=== PATIENT | male | born 1955 | race African-American/Black ===

== ENCOUNTER 2016-05-28 07:13 | Day surgery (SDC) | payer MEDICARE, MEDICAID ==
[~2016-05-28] VITALS: Ht 172.7 cm; Wt 61.4 kg
[2016-05-28] VITALS (9 sets, daily range): BP systolic 130–178; BP diastolic 75–105; PULSE 82–109; RESP 16–20; TEMP 97.8–97.9; O2SAT 95–99
[~2016-05-28 07:13] MED LIST: ALBU8I INH; LEVA500T PO; PERC5TAB12 PO; PROC1TAB8 PO; TUSSSUS PO
[2016-05-28] MEDS ORDERED: SODIUM CHLOR 0.9% 1000 ML IV SCH (07:30)
[2016-05-28] MEDS ORDERED: MIDAZOLAM HCL 5 MG/5 ML VIAL ONE (07:41)
[2016-05-28] MEDS ORDERED: fentaNYL CITRATE 250 MCG/5 ML AMP ONE (07:41)
[2016-05-28] MEDS ORDERED: LIDOCAINE 1%/EPINEPHrine 1:100,000 SOLN 20 ML VIAL ONE (07:41)
[2016-05-28] MEDS ORDERED: OXYC1CAP PO (07:52)
[2016-05-28] MEDS ORDERED: ENAL5TAB PO (07:52)
[2016-05-28] MEDS ORDERED: Infusaport/Implanted VAD PRN NS Lock Flush IVF (08:00)
[2016-05-28 08:11] LABS: APTT (PATIENT) 34.3 SEC (24.3-30.1)
--- NOTE | 2016-05-28 09:19 | RADRPT ---
EXAM DATE/TIME: 05/28/2016 08:36 [facility] COMPARISON: No previous studies available for comparison. INDICATIONS : Right lung mass SEDATION TIME: 30 minutes BIOPSY SITE: Right lung MEDICATION(S): 1.) 2.5 mg midazolam (Versed) IV 2.) 125 mcg fentanyl (Sublimaze) IV DEVICE(S): 1.) 18 gauge Islas blunt needle 2.) 20 gauge Temno core biopsy needle MEDICAL HISTORY : Carcinoma, lung. SURGICAL HISTORY : None. ENCOUNTER: Initial ACUITY: 1 day PAIN SCORE: 0/10 LOCATION: Right chest A total of two core specimen(s) were obtained and sent to the laboratory for pathologic evaluation. PROCEDURE: 1. CT guided lung biopsy. 2. Conscious sedation with continuous EKG and oximetry monitoring. 3. EKG and oximetry remained stable throughout the procedure. Prior to the procedure informed consent was obtained. Any appropriate prior imaging studies were rev iewed. The site was prepped in a sterile fashion. Full sterile technique was used, including cap, mask, zee rile gloves and gown and a large sterile sheet. Hand hygiene and 2% chlorhexidine and/or betadine/al cohol prep was utilized per protocol for cutaneous antisepsis. The skin and subcutaneous tissues wer e infiltrated with local anesthetic solution. With CT guidance the previously identified target was localized. Biopsy was performed using the presc ribed needle as above. Adequate hemostasis was obtained with compression at the puncture site. Follow-up CT scan reveals no pneumothorax. Conscious sedation was performed with the prescribed dosages and duration as above. The patient al ated the procedure well and there were no complications. EKG and oximetry remained stable throughout the procedure. The patient was sent to Radiology Outpatient Unit in stable condition. CONCLUSION: Uncomplicated CT guided biopsy of a right lung mass. Doe Jack MD on May 28, 2016 at 9:17 Board Certified Radiologist. This report was verified electronically.
[2016-05-28] MEDS ORDERED: oxyCODONE/ACETAMINOPHEN 5 MG/325 MG TAB PO PRN (09:30)
--- NOTE | 2016-05-28 13:33 | RADRPT ---
EXAM DATE/TIME: 05/28/2016 12:35 [facility] COMPARISON: No previous studies available for comparison. INDICATIONS : Post lung Bx MEDICAL HISTORY : Carcinoma, lung. Infuse a port. SURGICAL HISTORY : Infuse a port. ENCOUNTER: Initial ACUITY: 1 day PAIN SCORE: 0/10 LOCATION: Bilateral chest FINDINGS: Status post right lung biopsy. No evidence of pneumothorax. There continues to be consolidation in th e right lower lung. The left lung is clear. No definite pleural effusions. CONCLUSION: No evidence of pneumothorax. Doe Jack MD on May 28, 2016 at 13:30 Board Certified Radiologist. This report was verified electronically.
== END 2016-05-28 13:50 | disposition home or self-care (01) ==
LOC: HROP 07:13 → HRIP 07:15 → HROP 13:50
PROVIDERS: ATTEND Internal Medicine Hematology & Oncology
DX: C34.91 Malignant neoplasm of unspecified part of right bronchus or lung (principal); Z85.118 Personal history of other malignant neoplasm of bronchus and lung
CPT/HCPCS: 32405; 38221; 71010; 77012; 85610; 85730; 88305; 99152; G0364; J1642; J2250; J3010

== ENCOUNTER 2017-11-02 15:07 | Inpatient (IN) | payer MEDICARE, MEDICAID ==
[~2017-11-02] VITALS: Ht 170.2 cm; Wt 63.0 kg
[~2017-11-02 15:07] MED LIST changes: -ALBU8I INH; +ENAL5TAB PO; -LEVA500T PO; +OXYC1CAP PO; -PERC5TAB12 PO; -PROC1TAB8 PO; -TUSSSUS PO
[2017-11-02 15:16] VITALS: BP 148/83; PULSE 89; RESP 15; TEMP 97.9; O2SAT 98
[2017-11-02 16:39] VITALS: BP 161/82; PULSE 83; RESP 18; O2SAT 97
--- NOTE | 2017-11-02 16:43 | PD ---
HPI Chief Complaint: Abnormal Results Time Seen by Provider: 16:30 Travel History International Travel<30 days: No Contact w/Intl Traveler<30days: No Traveled to known affect area: No History of Present Illness HPI The patient is a 62-year-old -Al[place] male who presents to the emergency department for abnormal lab results. The patient has a history of stage IV lung cancer and is currently followed by his oncologist, Dr. Girard. The family states the patient has been feeling weak over the last 1-1/2 weeks, has had multiple falls at home. The patient states he does have some generalized weakness, has fallen several times secondary to the weakness. He denies any injuries from the falls, however, did have outpatient laboratory evaluation earlier today which revealed hyponatremia with a sodium of 123. The patient does have a history of lung carcinoma, stage IV, but is no longer getting palliative chemotherapy or radiation therapy. The patient states he finished his radiation therapy and chemotherapy 2 months ago. He is followed by his oncologist, Dr. Girard, but does not currently have a primary physician. He denies taking any diuretics. The patient does drink 4 beers a day and "lots of water ", otherwise denies any other symptoms including nausea, vomiting, or abdominal pain. PFSH Past Medical History Cancer: Yes (LUNG CA WITH CHEMO AND RADIATION ) Cardiovascular Problems: No Chemotherapy: Yes (2 MO'S AGO) Diabetes: No Diminished Hearing: No Endocrine: No Genitourinary: No Immune Disorder: No Musculoskeletal: Yes (ADMITTED WITH RIGHT RIB PAIN 05/24/13) Neurologic: No Psychiatric: No Reproductive: No Respiratory: Yes Immunizations Current: No Thyroid Disease: No Past Surgical History AICD: No Arteriovenous Shunt: No Insulin Pump: No Joint Replacement: No Oral Surgery: Yes (TOOTH EXTRACTIONS 1989) Pacemaker: No Thoracic Surgery: Yes (port placement) Social History Alcohol Use: Yes (OCCASSIONAL) Tobacco Use: Yes (1 PPD) Substance Use: No Allergies-Medications (Allergen,Severity, Reaction): Coded Allergies: No Known Allergies (Unverified Adverse Reaction, Unknown, 11/02/17) Reported Meds & Prescriptions Reported Meds & Active Scripts Active Reported Oxycodone (Oxycodone HCl) 5 Mg Cap 5 Mg PO Q4H PRN Enalapril (Enalapril Maleate) 5 Mg Tab 5 Mg PO DAILY Review of Systems Except as stated in HPI: all other systems reviewed are Neg General / Constitutional: No: Fever Cardiovascular: No: Chest Pain or Discomfort Respiratory: Positive: Other (History of stage IV lung carcinoma), No: Shortness of Breath Gastrointestinal: No: Nausea, Vomiting Genitourinary: No: Decreased Urinary Output Musculoskeletal: Positive: Weakness Neurologic: Positive: Weakness, No: Headache, Change in Mentation Physical Exam Narrative GENERAL: Awake, alert, pleasant 62-year-old male who appears his stated age and is in no acute respiratory distress. Thin build. SKIN: Focused skin assessment warm/dry. HEAD: Atraumatic. Normocephalic. EYES: Pupils equal and round. No scleral icterus. No injection or drainage. ENT: No nasal bleeding or discharge. Mucous membranes pink and moist. NECK: Trachea midline. No JVD. CARDIOVASCULAR: Regular rate and rhythm. No murmur appreciated. RESPIRATORY: No accessory muscle use. Clear to auscultation. Breath sounds equal bilaterally. GASTROINTESTINAL: Abdomen soft, non-tender, nondistended. No rebound tenderness , guarding, rigidity. MUSCULOSKELETAL: No obvious deformities. No clubbing. No cyanosis. No edema. NEUROLOGICAL: Awake and alert. No obvious cranial nerve deficits. Motor grossly within normal limits. Normal speech. PSYCHIATRIC: Appropriate mood and affect; insight and judgment normal. Data Data Last Documented VS Vital Signs Date Time Temp Pulse Resp B/P (MAP) Pulse Ox O2 Delivery O2 Flow Rate FiO2 11/02/17 16:39 83 18 161/82 (108) 97 Room Air 11/02/17 15:16 97.9 Orders Orders Complete Blood Count With Diff (11/02/17 16:38) Comprehensive Metabolic Panel (11/02/17 16:38) Sodium Chlorid 0.9% 500 Ml Inj (Ns 500 M (11/02/17 16:45) Admit Order (Ed Use Only) (11/02/17 17:50) Labs Laboratory Tests Test 11/02/17 16:50 White Blood Count 4.0 TH/MM3 Red Blood Count 4.05 MIL/MM3 Hemoglobin 15.3 GM/DL Hematocrit 44.5 % Mean Corpuscular Volume 110.0 FL Mean Corpuscular Hemoglobin 37.8 PG Mean Corpuscular Hemoglobin Concent 34.3 % Red Cell Distribution Width 14.7 % Platelet Count 145 TH/MM3 Mean Platelet Volume 9.5 FL Neutrophils (%) (Auto) 73.8 % Lymphocytes (%) (Auto) 14.9 % Monocytes (%) (Auto) 9.3 % Eosinophils (%) (Auto) 1.3 % Basophils (%) (Auto) 0.7 % Neutrophils # (Auto) 3.0 TH/MM3 Lymphocytes # (Auto) 0.6 TH/MM3 Monocytes # (Auto) 0.4 TH/MM3 Eosinophils # (Auto) 0.1 TH/MM3 Basophils # (Auto) 0.0 TH/MM3 CBC Comment DIFF FINAL Differential Comment Blood Urea Nitrogen 7 MG/DL Creatinine 1.14 MG/DL Random Glucose 89 MG/DL Total Protein 7.7 GM/DL Albumin 4.1 GM/DL Calcium Level 8.4 MG/DL Alkaline Phosphatase 107 U/L Aspartate Amino Transf (AST/SGOT) 117 U/L Alanine Aminotransferase (ALT/SGPT) 33 U/L Total Bilirubin 0.7 MG/DL Sodium Level 125 MEQ/L Potassium Level 3.7 MEQ/L Chloride Level 91 MEQ/L Carbon Dioxide Level 25.9 MEQ/L Anion Gap 8 MEQ/L Estimat Glomerular Filtration Rate 79 ML/MIN [facility] Medical Decision Making Medical Screen Exam Complete: Yes Emergency Medical Condition: Yes Medical Record Reviewed: Yes Interpretation(s) Laboratory Tests Test 11/02/17 16:50 White Blood Count 4.0 TH/MM3 Red Blood Count 4.05 MIL/MM3 Hemoglobin 15.3 GM/DL Hematocrit 44.5 % Mean Corpuscular Volume 110.0 FL Mean Corpuscular Hemoglobin 37.8 PG Mean Corpuscular Hemoglobin Concent 34.3 % Red Cell Distribution Width 14.7 % Platelet Count 145 TH/MM3 Mean Platelet Volume 9.5 FL Neutrophils (%) (Auto) 73.8 % Lymphocytes (%) (Auto) 14.9 % Monocytes (%) (Auto) 9.3 % Eosinophils (%) (Auto) 1.3 % Basophils (%) (Auto) 0.7 % Neutrophils # (Auto) 3.0 TH/MM3 Lymphocytes # (Auto) 0.6 TH/MM3 Monocytes # (Auto) 0.4 TH/MM3 Eosinophils # (Auto) 0.1 TH/MM3 Basophils # (Auto) 0.0 TH/MM3 CBC Comment DIFF FINAL Differential Comment Blood Urea Nitrogen 7 MG/DL Creatinine 1.14 MG/DL Random Glucose 89 MG/DL Total Protein 7.7 GM/DL Albumin 4.1 GM/DL Calcium Level 8.4 MG/DL Alkaline Phosphatase 107 U/L Aspartate Amino Transf (AST/SGOT) 117 U/L Alanine Aminotransferase (ALT/SGPT) 33 U/L Total Bilirubin 0.7 MG/DL Sodium Level 125 MEQ/L Potassium Level 3.7 MEQ/L Chloride Level 91 MEQ/L Carbon Dioxide Level 25.9 MEQ/L Anion Gap 8 MEQ/L Estimat Glomerular Filtration Rate 79 ML/MIN Differential Diagnosis Differential diagnosis includes hyponatremia, dehydration, SIADH, volume overload, electrolyte abnormality, medication side effect. Narrative Course The patient's port was accessed, labs are drawn and sent, and the patient was placed on cardiac telemetry monitoring and continuous pulse oximetry monitoring. The BNP was reevaluated, I did review the EMR, he did have a sodium of 123 earlier today. The patient was administered 500 cc of normal saline. The patient's hyponatremia may be a combination of SIADH secondary to lung carcinoma with water intake and beer intake. Repeat sodium was low at 125 , patient does have generalized weakness which may be secondary to the hyponatremia. Patient may benefit from fluid restriction, discussion regarding proper intake at home in regards to free water and beer. I discussed the patient with the on-call medical service who agrees with admission. Physician Communication Physician Communication I discussed the patient with Dr. Blakely. who agrees with admission. Diagnosis Primary Impression: Hyponatremia Additional Impression: Metastatic lung cancer (metastasis from lung to other site) Qualified Codes: C34.90 - Malignant neoplasm of unspecified part of unspecified bronchus or lung Admitting Information Admitting Physician Requests: Admit Condition: Stable Antonio Lai MD Nov 02, 2017 16:43
[2017-11-02] MEDS ORDERED: SODIUM CHLORID 0.9% 500 ML INJ 500 ML IV ONE (16:45)
[2017-11-02 17:17] LABS: BASOPHIL % 0.7 % (0.0-2.0); EOSINOPHIL # 0.1 TH/MM3 (0-0.4); EOSINOPHIL % 1.3 % (0.0-4.0); HEMATOCRIT 44.5 % (39.0-51.0); HEMOGLOBIN 15.3 GM/DL (13.0-17.0); LYMPH % 14.9 % (9.0-44.0); LYMPHOCYTE # 0.6 TH/MM3 (1.0-4.8); MEAN CORPUSCULAR HEMOGLOBIN 37.8 PG (27.0-34.0); MEAN CORPUSCULAR HGB CONC 34.3 % (32.0-36.0); MEAN PLATELET VOLUME 9.5 FL (7.0-11.0); MONO % 9.3 % (0.0-8.0); MONOCYTE # 0.4 TH/MM3 (0-0.9); NEUT % 73.8 % (16.0-70.0); PLATELET COUNT 145 TH/MM3 (150-450); RED BLOOD COUNT 4.05 MIL/MM3 (4.50-5.90); RED CELL DISTRIBUTION WIDTH 14.7 % (11.6-17.2)
[2017-11-02 17:29] LABS: ALBUMIN 4.1 GM/DL (3.4-5.0); ALT (GPT) 33 U/L (12-78); AST (GOT) 117 U/L (15-37); BICARBONATE 25.9 MEQ/L (21.0-32.0); BLOOD UREA NITROGEN 7 MG/DL (7-18); CALCIUM 8.4 MG/DL (8.5-10.1); CHLORIDE 91 MEQ/L (98-107); CREATININE 1.14 MG/DL (0.60-1.30); GLOMERULAR FILTRATION RATE 79 ML/MIN (>89); GLUCOSE,RANDOM 89 MG/DL (74-106); SODIUM (NA) 125 MEQ/L (136-145)
[2017-11-02 17:31] LABS: ALKALINE PHOSPHATASE 107 U/L (45-117); TOTAL BILIRUBIN ADULT 0.7 MG/DL (0.2-1.0); TOTAL PROTEIN 7.7 GM/DL (6.4-8.2)
--- NOTE | 2017-11-02 17:58 | HHI.HP ---
[facility] Anibal Girard MD Admission Diagnosis Hyponatremia, generalized weakness, history of stage IV lung carcino Diagnoses: Chief Complaint: Hyponatremia, unsteady gait Travel History International Travel<30 Days: No Contact w/Intl Traveler <30 Da: No Traveled to Known Affected Are: No History of Present Illness Written by Codi Gaffney, acting as scribe for Dr. Blakely on 11/02/17 at 17: 58. Patient is a 62-year-old AA male with past medical history of hypertension, stage IV lung cancer who came into the hospital secondary to abnormal lab work. Patient is being followed by Dr. Girard and outpatient and had lab draws done, states that he was sent to the emergency room by Dr. Carranza's office because his sodium was low. Patient states that he was dizzy when he walks, denies room spinning, states that he is "back and forth, imbalanced." He admits to drinking 4-5 beers per day, lopez. Otherwise, denies pain and discomfort. Denies SOB/ dyspnea. Denies chest pain, palpitations, headaches. Denies fevers , chills, n/v/d. Denies dysuria. Reports constipation. Sodium level initially was 123, repeat was 125 Review of Systems Except as stated in HPI: all other systems reviewed are Neg Past Family Social History Past Medical History Stage IV lung cancer diagnosed in 2013 HTN Past Surgical History Lung biopsy Reported Medications Reported Meds & Active Scripts Active Reported Oxycodone (Oxycodone HCl) 5 Mg Cap 5 Mg PO Q4H PRN Enalapril (Enalapril Maleate) 5 Mg Tab 5 Mg PO DAILY Allergies: Coded Allergies: No Known Allergies (Unverified Allergy, Unknown, 11/02/17) Family History Mother, father had heart disease, at age of 66 Social History Admits to drinking alcohol 4-5 beers per day Former smoker, quit in 2013 Denies illicit drug Physical Exam Vital Signs Vital Signs Date Time Temp Pulse Resp B/P (MAP) Pulse Ox O2 Delivery O2 Flow Rate FiO2 11/02/17 16:39 83 18 161/82 (108) 97 Room Air 11/02/17 15:16 97.9 89 15 148/83 (104) 98 Physical Exam GENERAL: This is a thin appearing, well-developed patient, appears older than stated age, in no apparent distress. SKIN: Cool and dry. Bilateral lower extremity dry skin. HEAD: Normocephalic. EYES: Pupils equal round and reactive. Extraocular motions intact. No scleral icterus. No injection or drainage. ENT: Nose without bleeding. Throat without erythema. Uvula midline. Airway patent. NECK: Trachea midline. CARDIOVASCULAR: Regular rate and rhythm without murmurs, gallops, or rubs. Right subclavian port in place RESPIRATORY: Clear to auscultation. Breath sounds equal bilaterally. No wheezes , rales, or rhonchi. GASTROINTESTINAL: Abdomen soft, non-tender, nondistended. Bowel sounds MUSCULOSKELETAL: Extremities without clubbing, cyanosis, or edema. NEUROLOGICAL: Awake and alert. Oriented to person, place, time. Motor and sensory grossly within normal limits. Normal speech. Laboratory Laboratory Tests Test 11/02/17 16:50 White Blood Count 4.0 Red Blood Count 4.05 Hemoglobin 15.3 Hematocrit 44.5 Mean Corpuscular Volume 110.0 Mean Corpuscular Hemoglobin 37.8 Mean Corpuscular Hemoglobin Concent 34.3 Red Cell Distribution Width 14.7 Platelet Count 145 Mean Platelet Volume 9.5 Neutrophils (%) (Auto) 73.8 Lymphocytes (%) (Auto) 14.9 Monocytes (%) (Auto) 9.3 Eosinophils (%) (Auto) 1.3 Basophils (%) (Auto) 0.7 Neutrophils # (Auto) 3.0 Lymphocytes # (Auto) 0.6 Monocytes # (Auto) 0.4 Eosinophils # (Auto) 0.1 Basophils # (Auto) 0.0 CBC Comment DIFF FINAL Differential Comment Blood Urea Nitrogen 7 Creatinine 1.14 Random Glucose 89 Total Protein 7.7 Albumin 4.1 Calcium Level 8.4 Alkaline Phosphatase 107 Aspartate Amino Transf (AST/SGOT) 117 Alanine Aminotransferase (ALT/SGPT) 33 Total Bilirubin 0.7 Sodium Level 125 Potassium Level 3.7 Chloride Level 91 Carbon Dioxide Level 25.9 Anion Gap 8 Estimat Glomerular Filtration Rate 79 Result Diagram: 11/02/17 1650 11/02/17 1650 Caprini VTE Risk Assessment Caprini VTE Risk Assessment: Mod/High Risk (score >= 2) Caprini Risk Assessment Model Point Value = 1 Point Value = 2 Point Value = 3 Point Value = 5 Age 41-60 Minor surgery BMI > 25 kg/m2 Swollen legs Varicose veins or History of unexplained or recurrent spontaneous Oral contraceptives or hormone replacement Sepsis (< 1 month) Serious lung disease, including pneumonia (< 1 month) Abnormal pulmonary function Acute myocardial infarction Congestive heart failure (< 1 month) History of inflammatory bowel disease Medical patient at bed rest Age 61-74 Arthroscopic surgery Major open surgery (> 45 min) Laparoscopic surgery (> 45 min) Malignancy Confined to bed (> 72 hours) Immobilizing plaster cast Central venous access Age >= 75 History of VTE Family history of VTE Factor V Leiden Prothrombin [id number] Lupus anticoagulant Anticardiolipin antibodies Elevated serum homocysteine Heparin-induced thrombocytopenia Other congenital or acquired thrombophilia Stroke (< 1 month) Elective arthroplasty Hip, pelvis, or leg fracture Acute spinal cord injury (< 1 month) Prophylaxis Regimen Total Risk Factor Score Risk Level Prophylaxis Regimen 0-1 Low Early ambulation 2 Moderate Order ONE of the following: *Sequential Compression Device (SCD) *Heparin 5000 units SQ BID 3-4 Higher Order ONE of the following medications: *Heparin 5000 units SQ TID *Enoxaparin/Lovenox 40 mg SQ daily (WT < 150 kg, CrCl > 30 mL/min) *Enoxaparin/Lovenox 30 mg SQ daily (WT < 150 kg, CrCl > 10-29 mL/min) *Enoxaparin/Lovenox 30 mg SQ BID (WT < 150 kg, CrCl > 30 mL/min) AND/OR *Sequential Compression Device (SCD) 5 or more Highest Order ONE of the following medications: *Heparin 5000 units SQ TID (Preferred with Epidurals) *Enoxaparin/Lovenox 40 mg SQ daily (WT < 150 kg, CrCl > 30 mL/min) *Enoxaparin/Lovenox 30 mg SQ daily (WT < 150 kg, CrCl > 10-29 mL/min) *Enoxaparin/Lovenox 30 mg SQ BID (WT < 150 kg, CrCl > 30 mL/min) AND *Sequential Compression Device (SCD) Assessment and Plan Assessment and Plan Patient is a 62-year-old AA male with past medical history of hypertension, stage IV lung cancer who came into the hospital secondary to hyponatremia sent by his oncologist Dr. Ferrera. Moderate hyponatremia, Acute Na 123 -Baseline sodium levels 129-130 -Symptoms including dizziness gait disturbances -NS bolus given 500ML -Discussed with patient extensively the hyponatremia could be caused by him drinking alcohol daily, and also water -Monitor sodium levels -Avoid overcorrection. NS plus potassium @100ml/hr -Monitor for worsening symptoms HTN -Continue home medication Enalapril 5mg daily -Monitor BP trend Stage IV lung cancer -Chronic. Followed by Dr Girard in the outpatient setting -Monitor resp status. Currently NAD on RA. DVT prop Heparin SQ Code Status Full Code Discussed Condition With Patient, nursing, ED attending Attending Statement This note was transcribed by virginia Gaffney. I, Dr. Sriram Blakely personally performed the history, physical exam, and medical decision making; and confirmed the accuracy of the information in the transcribed note. Authenticated by Dr. Sriram Blakely on 11/02/17 at 18:27. Codi Viera Nov 02, 2017 17:58 Sriram Blakely MD Nov 02, 2017 18:37
[2017-11-02] MEDS ORDERED: LACTULOSE SYRUP 20 GM/30 ML CUP PO PRN (18:15)
[2017-11-02] MEDS ORDERED: ACETAMINOPHEN 325 MG TAB PO PRN (18:15)
[2017-11-02] MEDS ORDERED: ONDANSETRON HCL 4 MG/2 ML VIAL IVP PRN (18:15)
[2017-11-02] MEDS ORDERED: BISACODYL 10 MG SUPP RECTAL PRN (18:15)
[2017-11-02] MEDS ORDERED: NALOXONE HCL 0.4 MG/ML AMP IV PUSH PRN (18:15)
[2017-11-02] MEDS: NS + KCL 20 MEQ INJ 1,000 ML IV SCH (18:15)
[2017-11-02] MEDS ORDERED: SENNOSIDES 8.6 MG TAB PO PRN (18:15)
[2017-11-02] MEDS ORDERED: MAGNESIUM HYDROXIDE SUSP 30 ML CUP PO PRN (18:15)
[2017-11-02] MEDS: HEPARIN SODIUM - SQ 10,000 UNITS/ML VIAL SQ SCH (20:00)
[2017-11-02 20:04] VITALS: BP 135/78; PULSE 79; RESP 20; O2SAT 96
[2017-11-02] MEDS: DOCUSATE SODIUM 50 MG/SENNA 8.6 MG TAB PO SCH (21:00)
[2017-11-02 21:08] VITALS: BP 123/75; PULSE 83; RESP 16; TEMP 98.5; O2SAT 98
[2017-11-03] VITALS (10 sets, daily range): BP systolic 109–154; BP diastolic 63–83; PULSE 71–80; RESP 16–18; TEMP 98–98.9; O2SAT 96–100
[2017-11-03 05:03] LABS: AUTOMATED NEUTROPHIL # 2.2 TH/MM3 (1.8-7.7); BASOPHIL % 0.8 % (0.0-2.0); EOSINOPHIL % 1.4 % (0.0-4.0); HEMATOCRIT 45.4 % (39.0-51.0); HEMOGLOBIN 15.4 GM/DL (13.0-17.0); LYMPH % 18.2 % (9.0-44.0); LYMPHOCYTE # 0.6 TH/MM3 (1.0-4.8); MEAN CELL VOLUME 109.5 FL (80.0-100.0); MEAN CORPUSCULAR HGB CONC 33.8 % (32.0-36.0); MONO % 11.8 % (0.0-8.0); MONOCYTE # 0.4 TH/MM3 (0-0.9); NEUT % 67.8 % (16.0-70.0); PLATELET COUNT 159 TH/MM3 (150-450); RED BLOOD COUNT 4.15 MIL/MM3 (4.50-5.90); RED CELL DISTRIBUTION WIDTH 14.9 % (11.6-17.2); WHITE BLOOD COUNT 3.2 TH/MM3 (4.0-11.0)
[2017-11-03] MEDS: NS + KCL 20 MEQ INJ 1,000 ML IV SCH ×3 (05:09→20:45)
[2017-11-03] MEDS: HEPARIN SODIUM - SQ 10,000 UNITS/ML VIAL SQ SCH ×3 (05:10→20:46)
[2017-11-03 05:36] LABS: ALBUMIN 3.3 GM/DL (3.4-5.0); ALT (GPT) 30 U/L (12-78); AST (GOT) 92 U/L (15-37); BICARBONATE 22.3 MEQ/L (21.0-32.0); BLOOD UREA NITROGEN 7 MG/DL (7-18); CALCIUM 8.2 MG/DL (8.5-10.1); CHLORIDE 96 MEQ/L (98-107); CREATININE 1.17 MG/DL (0.60-1.30); GLOMERULAR FILTRATION RATE 76 ML/MIN (>89); GLUCOSE,RANDOM 81 MG/DL (74-106); SODIUM (NA) 127 MEQ/L (136-145)
[2017-11-03 05:39] LABS: ALKALINE PHOSPHATASE 96 U/L (45-117); TOTAL BILIRUBIN ADULT 0.6 MG/DL (0.2-1.0); TOTAL PROTEIN 6.9 GM/DL (6.4-8.2)
[2017-11-03] MEDS: ENALAPRIL MALEATE 5 MG TAB PO SCH (08:20)
[2017-11-03] MEDS: DOCUSATE SODIUM 50 MG/SENNA 8.6 MG TAB PO SCH ×2 (08:20→20:45)
--- NOTE | 2017-11-03 09:09 | HHI.PR ---
Subjective Remarks Feels weak but improved since yesterday. Denies chest pain or shortness of breath. She is not confused. No pain in his muscles. No nausea or abdominal cramps. Objective Vitals Vital Signs Date Time Temp Pulse Resp B/P (MAP) Pulse Ox O2 Delivery O2 Flow Rate FiO2 11/03/17 08:15 98.3 73 16 139/78 (98) 99 11/03/17 05:07 98.3 71 18 123/78 (93) 98 11/03/17 03:47 72 11/03/17 01:19 98.1 73 18 117/63 (81) 100 11/03/17 00:14 77 11/02/17 21:08 98.5 83 16 123/75 (91) 98 11/02/17 20:04 79 20 135/78 (97) 96 Room Air 11/02/17 16:39 83 18 161/82 (108) 97 Room Air 11/02/17 15:16 97.9 89 15 148/83 (104) 98 Result Diagram: 11/03/17 0445 11/03/17 0445 Objective Remarks GENERAL: This is a thin appearing, well-developed patient, appears older than stated age, in no apparent distress. SKIN:Dry skin. CARDIOVASCULAR: Regular rate and rhythm without murmurs, gallops, or rubs. Right subclavian port in place RESPIRATORY: Clear to auscultation. Breath sounds equal bilaterally. No wheezes , rales, or rhonchi. GASTROINTESTINAL: Abdomen soft, non-tender, nondistended. Bowel sounds MUSCULOSKELETAL: Extremities without clubbing, cyanosis, or edema. NEUROLOGICAL: Awake and alert. Oriented to person, place, time. Motor and sensory grossly within normal limits. Normal speech. A/P Assessment and Plan Patient is a 62-year-old AA male with past medical history of hypertension, stage IV lung cancer who came into the hospital secondary to hyponatremia sent by his oncologist Dr. Ferrera. Moderate hyponatremia, Acute Na 123 on admission. Improving Baseline sodium levels 129-130 Symptoms including dizziness gait disturbances Received NS bolus given 500ML Monitor sodium levels, monitor for overcorrection. Continue NS plus potassium @100ml/hr Monitor for worsening symptoms HTN -Continue home medication Enalapril 5mg daily Monitor BP trend Stage IV lung cancer-Chronic. Followed by Dr Girard in the outpatient setting Monitor resp status. Currently NAD on RA. DVT prop Heparin SQ Code Status Full Code Discussed Condition With Patient, nurse Discharge plan: Discharge when improved and sodium is at baseline. Balbina العلي MD Nov 03, 2017 09:09
[2017-11-04] VITALS (8 sets, daily range): BP systolic 121–160; BP diastolic 78–89; PULSE 66–82; RESP 16–18; TEMP 97.4–98; O2SAT 97–99
[2017-11-04] MEDS: HEPARIN SODIUM - SQ 10,000 UNITS/ML VIAL SQ SCH ×2 (03:54→12:00)
[2017-11-04] MEDS: NS + KCL 20 MEQ INJ 1,000 ML IV SCH (03:56)
[2017-11-04 05:32] LABS: AUTOMATED NEUTROPHIL # 2.6 TH/MM3 (1.8-7.7); BASOPHIL % 1.3 % (0.0-2.0); HEMATOCRIT 42.9 % (39.0-51.0); HEMOGLOBIN 14.3 GM/DL (13.0-17.0); LYMPH % 14.6 % (9.0-44.0); LYMPHOCYTE # 0.5 TH/MM3 (1.0-4.8); MEAN CELL VOLUME 110.7 FL (80.0-100.0); MEAN CORPUSCULAR HEMOGLOBIN 36.9 PG (27.0-34.0); MEAN CORPUSCULAR HGB CONC 33.3 % (32.0-36.0); MEAN PLATELET VOLUME 8.4 FL (7.0-11.0); MONO % 9.2 % (0.0-8.0); MONOCYTE # 0.3 TH/MM3 (0-0.9); NEUT % 73.9 % (16.0-70.0); RED BLOOD COUNT 3.88 MIL/MM3 (4.50-5.90); RED CELL DISTRIBUTION WIDTH 14.8 % (11.6-17.2); WHITE BLOOD COUNT 3.6 TH/MM3 (4.0-11.0)
[2017-11-04 05:52] LABS: BICARBONATE 22.8 MEQ/L (21.0-32.0); CALCIUM 7.6 MG/DL (8.5-10.1); CREATININE 1.21 MG/DL (0.60-1.30)
[2017-11-04] MEDS: DOCUSATE SODIUM 50 MG/SENNA 8.6 MG TAB PO SCH (09:50)
[2017-11-04] MEDS: ENALAPRIL MALEATE 5 MG TAB PO SCH (09:50)
[2017-11-04 11:22] LABS: PLATELET COUNT 167 TH/MM3 (150-450)
--- NOTE | 2017-11-04 15:11 | HHI.DCPOC ---
Discharge Care Plan Diagnosis: (1) Alcohol dependence (2) Metastatic lung cancer (metastasis from lung to other site) (3) Hyponatremia Goals to Promote Your Health * To prevent worsening of your condition and complications * To maintain your health at the optimal level Directions to Meet Your Goals Take your medications as prescribed Follow your dietary instruction Follow activity as directed Keep your appointments as scheduled Take your immunizations and boosters as scheduled If your symptoms worsen call your PCP, if no PCP go to Urgent Care Center or Emergency Room Smoking is Dangerous to Your Health. Avoid second hand smoke Call the 24-hour hour crisis hotline for domestic abuse at Vaibhav Muse DO Nov 04, 2017 15:11
--- NOTE | 2017-11-04 15:17 | HHI.PR ---
Subjective Remarks The pt was anxious to go home. He said he'll try to cut down on the amount of beer he drinks and start to eat more. He said he has been ambulating well. Discussed with nursing. Objective Vitals Vital Signs Date Time Temp Pulse Resp B/P (MAP) Pulse Ox O2 Delivery O2 Flow Rate FiO2 11/04/17 12:25 97.4 79 18 160/89 (112) 99 11/04/17 12:25 97.4 75 16 144/85 (104) 97 11/04/17 12:15 79 11/04/17 08:00 82 11/04/17 07:37 98.0 71 18 126/78 (94) 97 11/04/17 04:09 73 11/04/17 04:07 16 11/04/17 03:33 97.8 66 16 121/79 (93) 99 11/04/17 00:04 70 11/03/17 23:50 98.0 75 16 119/77 (91) 99 11/03/17 20:45 98.0 71 18 154/83 (106) 98 11/03/17 20:36 75 11/03/17 15:31 98.5 80 16 109/63 (78) 98 I/O 11/03/17 11/03/17 11/03/17 11/04/17 11/04/17 11/04/17 07:00 15:00 23:00 07:00 15:00 23:00 Intake Total 820 ml 1360 ml Output Total 450 ml 200 ml Balance 820 ml 910 ml -200 ml Intake Oral 120 ml 360 ml IV Total 700 ml 1000 ml Output Urine Total 450 ml 200 ml # Voids 1 Result Diagram: 11/04/17 0350 11/04/17 0350 Objective Remarks GENERAL: No distress. SKIN: Dry skin. CARDIOVASCULAR: Regular rate and rhythm. Right subclavian port in place. RESPIRATORY: Scattered rhonchi. GASTROINTESTINAL: Abdomen soft, non-tender, nondistended. Bowel sounds MUSCULOSKELETAL: Extremities without clubbing, cyanosis, or edema. NEUROLOGICAL: Awake and alert. Oriented to person, place, time. Motor and sensory grossly within normal limits. Normal speech. Ambulating well. A/P Assessment and Plan Patient is a 62-year-old male with past medical history of hypertension, stage IV lung cancer who came into the hospital secondary to hyponatremia sent by his oncologist Dr. Ferrera. Moderate hyponatremia, Acute Na 123 on admission. Improved to 131. Symptoms including dizziness gait disturbances Received NS bolus given 500ML S/p NS plus potassium @100ml/hr - Recommended to cut down on beer intake (up to six beers daily). Encourage pt to eat more. - repeat BMP in 3-5 days. Alcohol dependence Up to six beers daily. - cessation instruction. HTN -Continue home medication Enalapril 5mg daily Monitor BP trend Stage IV lung cancer-Chronic. Followed by Dr Girard in the outpatient setting Monitor resp status. Currently NAD on RA. - outpt follow-up. DVT prop Heparin SQ Discharge Planning D/c home Vaibhav Muse DO Nov 04, 2017 15:17
== END 2017-11-04 16:33 | disposition home or self-care (01) | DRG 641 ==
LOC: NEPC 15:07 → NEDA 17:52 → NEPFCDU 20:47 → HCIN 11-03 20:26
PROVIDERS: ADMIT Hospitalist; ATTEND Hospitalist
DX: E87.1 Hypo-osmolality and hyponatremia (principal); C34.91 Malignant neoplasm of unspecified part of right bronchus or lung; I10 Essential (primary) hypertension; F10.20 Alcohol dependence, uncomplicated; Z87.891 Personal history of nicotine dependence
CPT/HCPCS: 80048; 80053; 85025; J1644; J3480; J7040

== ENCOUNTER 2018-03-18 10:11 | Inpatient (IN) ==
--- NOTE | 2018-03-18 10:45 | ED ---
HPI General Chief complaint: Medical Clearance Stated complaint: Medical Time Seen by Provider: 03/18/18 10:28 History of Present Illness HPI narrative: This patient was sent here on recommendation of his oncologist Dr. Girard. This patient has long-standing history of lung cancer. He has been doing poorly due to progressive hyponatremia. His gait has become unsteady and he is using a walker. Dr. Girard has recommended hospital admission the patient is agreeable. Symptoms are moderately severe. Duration is progressive over several months. Severity is moderate. No alleviating factors. Possible exacerbating factors include lung cancer and alcohol use. Related Data Home Medications Medication Instructions Recorded Confirmed enalapril maleate 10 mg PO DAILY 03/18/18 03/18/18 oxycodone-acetaminophen 1 tab PO Q4-6H PRN 03/18/18 03/18/18 Allergies Allergy/AdvReac Type Severity Reaction Status Date / Time No Known Allergies Allergy Verified 03/18/18 10:16 Review of Systems ROS: all other systems reviewed are negative [facility], [facility] Medical History Medical History Hypertension (Acute) Hyponatremia (Acute) Lung cancer (Acute) Social History Social History Substance History: Active Abuse Second Hand Smoke Exposure: No Smoking Status: Current every day smoker Tobacco Type: Cigarettes How Often Do You Have a Drink Containing Alcohol: 4 or more times a week Recent Travel in [facility] within the Last 8 Weeks: No Recent Out of Country Travel within the Last 8 Weeks: No Substance Abuse Detail Alcohol: Substance Use Status: Active Route Used Substance Abuse: By Mouth Substance Abuse Comment: at least 5 days a week drinks beer Immunization History Tetanus Immunization: Unsure Exam Narrative Exam Narrative: GENERAL: Well-nourished, well-developed patient in no apparent distress. SKIN: Focused skin assessment reveals no rash and nodules. Skin is Warm and dry. HEAD:atraumatic with an odd shaped sloping forehead. EYES: Pupils equal and round. No scleral icterus. No injection or drainage. ENT: No nasal bleeding or discharge. Mucous membranes pink and moist. NECK: Trachea midline. No JVD. CARDIOVASCULAR: Regular rate and rhythm. No murmur appreciated. RESPIRATORY: No accessory muscle use. Clear to auscultation. Diminished breath sounds in the bases . GASTROINTESTINAL: Abdomen soft, non-tender, nondistended. Hepatic and splenic margins not palpable. MUSCULOSKELETAL: No obvious deformities. No clubbing. No cyanosis. No edema. NEUROLOGICAL: Awake and alert. No obvious cranial nerve deficits. Motor grossly within normal limits. Normal speech. PSYCHIATRIC: Appropriate mood and affect; insight and judgment reasonable . Course Initial Documented Vital Signs Temperature 97.4 F L 03/18/18 10:13 Pulse Rate 92 H 03/18/18 10:13 Respiratory Rate 18 03/18/18 10:13 Blood Pressure 150/81 H 03/18/18 10:13 Pulse Oximetry 96 03/18/18 10:13 Last Documented Vital Signs Temperature 97.4 F L 03/18/18 10:13 Pulse Rate 90 03/18/18 10:33 Respiratory Rate 18 03/18/18 10:33 Blood Pressure 147/65 H 03/18/18 10:33 Pulse Oximetry 98 03/18/18 10:33 Medical Decision Making MDM Narrative Medical decision making narrative: 63-year-old male presents for admission for progressive worsening hyponatremia and also has lung cancer. I have ordered general lab studies. In the hospital he will be getting brain MRI and CT of the chest so I am not ordering an emergency department chest x-ray or brain CT. I reviewed the case in detail with the hospitalist. He will be admitted. His current sodium is 126 and CBC is normal. Medical Screen Exam Complete: Yes Emergency Medical Condition: Yes Medical Records Medical records reviewed: Yes I reviewed the patient's medical records. Reviewed his extensive workup from Dr. Girard from yesterday Lab Data Lab results reviewed: Yes I reviewed the patient's lab results. Lab results narrative: Normal CBC and metabolic's reveal hyponatremia Result diagrams: 03/18/18 10:50 03/18/18 10:50 Lab Results 03/18/18 03/18/18 Range/Units 10:50 10:50 WBC 5.7 (4.0-11.0) th/mm3 RBC 3.99 L (4.50-5.90) mil/mm3 Hgb 14.0 (13.0-17.0) gm/dL Hct 41.0 (39.0-51.0) % MCV 102.7 H (80.0-100.0) fL MCH 35.0 H (27.0-34.0) pg MCHC 34.1 (32.0-36.0) % RDW 16.3 (11.6-17.2) % Plt Count 190 (150-450) th/mm3 MPV 8.5 (7.0-11.0) fL Neut % (Auto) 78.4 H (16.0-70.0) % Lymph % (Auto) 10.1 (9.0-44.0) % [place] % (Auto) 9.5 H (0.0-8.0) % Eos % (Auto) 1.1 (0.0-4.0) % Baso % (Auto) 0.9 (0.0-2.0) % Neut # (Auto) 4.5 (1.8-7.7) th/mm3 Lymph # (Auto) 0.6 L (1.0-4.8) th/mm3 [place] # (Auto) 0.5 (0.0-0.9) th/mm3 Eos # (Auto) 0.1 (0.0-0.4) th/mm3 Baso # (Auto) 0.1 (0.0-0.2) th/mm3 WBC Differential . Differential Comment Auto diff final Sodium 126 L (136-145) meq/L Potassium 4.0 (3.5-5.1) meq/L Chloride 88 L (98-107) meq/L Carbon Dioxide 27.7 (21.0-32.0) meq/L Anion Gap 10 (5-15) meq/L BUN 4 L (7-18) mg/dL Creatinine 1.16 (0.60-1.30) mg/dL Estimated GFR 77 L (>89) mL/min Random Glucose 78 (74-106) mg/dL Calcium 9.1 (8.5-10.1) mg/dL Total Bilirubin 0.3 (0.2-1.0) mg/dL AST 85 H (15-37) U/L ALT 21 (12-78) U/L Alkaline Phosphatase 141 H (45-117) U/L Total Protein 8.3 H (6.4-8.2) g/dL Albumin 3.6 (3.4-5.0) g/dL Discharge Plan Discharge Disposition Patient Disposition: 30 Still Patient Discharge Details Diagnosis: Hyponatremia, Lung cancer, lower lobe Physicians Team ED Provider: Sriram Manning Primary Care Provider: UNKNOWN, Rxs /Orders / Referrals /Forms Prescriptions: No Action enalapril maleate 10 mg Tablet 10 mg PO DAILY RF: 0 oxycodone-acetaminophen 5-325 mg Tablet 1 tab PO Q4-6H PRN (Reason: Pain) RF: 0 Discharge Interventions Interventions: Vital Signs Last Done: 03/18/18 10:33 Status ED Status: With Doctor
[2018-03-18 11:09] LABS: Baso # (Auto) 0.1 th/mm3 (0.0-0.2); Baso % (Auto) 0.9 % (0.0-2.0); Eos # (Auto) 0.1 th/mm3 (0.0-0.4); Eos % (Auto) 1.1 % (0.0-4.0); Lymph # (Auto) 0.6 th/mm3 (1.0-4.8); Lymph % (Auto) 10.1 % (9.0-44.0); Mean Corpuscular HGB Conc 34.1 % (32.0-36.0); Mean Corpuscular Volume 102.7 fL (80.0-100.0); Mean Platelet Volume 8.5 fL (7.0-11.0); Mono # (Auto) 0.5 th/mm3 (0.0-0.9); Mono % (Auto) 9.5 % (0.0-8.0); Neut # (Auto) 4.5 th/mm3 (1.8-7.7); Neut % (Auto) 78.4 % (16.0-70.0); Platelet Count 190 th/mm3 (150-450); Red Blood Count 3.99 mil/mm3 (4.50-5.90); Red Cell Distribution Width 16.3 % (11.6-17.2); White Blood Count 5.7 th/mm3 (4.0-11.0)
[2018-03-18 11:37] LABS: Albumin 3.6 g/dL (3.4-5.0); Anion Gap 10 meq/L (5-15); Aspartate Aminotransferase 85 U/L (15-37); Blood Urea Nitrogen 4 mg/dL (7-18); Calcium 9.1 mg/dL (8.5-10.1); Carbon Dioxide 27.7 meq/L (21.0-32.0); Chloride 88 meq/L (98-107); Glomerular Filtration Rate 77 mL/min (>89); Glucose,Random 78 mg/dL (74-106); Sodium 126 meq/L (136-145)
[2018-03-18 11:40] LABS: Alanine Aminotransferase 21 U/L (12-78); Alkaline Phosphatase 141 U/L (45-117); Total Protein 8.3 g/dL (6.4-8.2)
--- NOTE | 2018-03-18 17:12 | P.HP ---
History of Present Illness Primary Care Physician: UNKNOWN History of Present Illness: 63-year-old black male being admitted to the ER for generalized weakness and suspected progression squamous cell cancer. Patient's main complaints are that he feels generalized weakness, slowed mentation, girlfriend mentions some confusion as well as some slowed speech, gait issues requiring a walker. Denies any nausea vomiting diarrhea. Patient is followed by oncology outpatient. Was instructed to proceed to the emergency department for further workup of his symptoms. Was noted to be hyponatremic at 126. 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 Has undergone chemotherapy and radiation therapy. Was found to have also become hyponatremic during the prior hospitalization. Based upon his most recent CT scan on 12/30/17 he has had increasing consolidation in the posterior lower right lung there appears to be possible obstruction of the segmental bronchi posteriorly to the right lung. At this time he has shown concerning neurologic weakness, patient complains that he is having to use a walker now. FH: pt denies any family hx of cancer Inpatient Certification: I certify that the inpatient services were ordered in accordance with Medicare regulations governing the order. This includes certification that hospital inpatient services are reasonable and necessary and in the case of services not specified as inpatient-only under 42 CFR 419.22(n), that they are appropriately provided as inpatient services in accordance to with the 2-midnight benchmark under 43 CFR 412.3(e) Estimated Total Length of Stay (Days): 2 Plans for Post Hospital Care: Not yet determined Review of Systems All other systems reviewed negative except as stated in HPI [facility] - History History Provided By: Patient - Medical History Medical History: Medical History (Last Reviewed 03/18/18 @ 17:09 by Kael Paez MD) Hypertension Hyponatremia Lung cancer - Social History I have reviewed the patient's Social History: Yes - Tobacco History Second Hand Smoke Exposure: No Tobacco Use In Past 30 Days: Yes Smoking Status: Current every day smoker Tobacco Type: Cigarettes - Alcohol History How Often Do You Have a Drink Containing Alcohol: 4 or more times a week - Substance Use History Substance History: Active Abuse - Substance Use Type Alcohol Status: Active Route Used: By Mouth Comment: at least 5 days a week drinks beer - Travel History Recent Travel in the [facility] Within the Last 8 Weeks: No Recent Travel Out of the Country Within the Last 8 Weeks: No - Immunization History Tetanus Immunization: Unsure Medications and Allergies Active Medications: Active Medications Sodium Chloride (Ns Flush) 2 ml IV.FLUSH BID BHARAT Sodium Chloride (Ns Flush) 2 ml IV.FLUSH UNSCH PRN PRN Reason: FLUSH AFTER USING IV ACCESS Allergies Allergy/AdvReac Type Severity Reaction Status Date / Time No Known Allergies Allergy Verified 03/18/18 10:16 Home Medications Medication Instructions Recorded Confirmed Type enalapril maleate 10 mg PO DAILY 03/18/18 03/18/18 History oxycodone-acetaminophen 1 tab PO Q4-6H PRN 03/18/18 03/18/18 History Exam Vital signs: Vital Signs 03/18/18 10:13 03/18/18 10:33 Temperature 97.4 F L Pulse Rate 92 H 90 Respiratory Rate 18 18 Blood Pressure 150/81 H 147/65 H Pulse Oximetry 96 98 Intake & Output 03/17/18 03/18/18 03/18/18 18:59 06:59 18:59 Weight 64.864 kg Narrative: VS: afebrile GENERAL: Well-nourished middle-age male, no acute distress SKIN: Warm and dry. EYES: No scleral icterus. No injection or drainage. ENT: No nasal bleeding or discharge. Mucous membranes pink and moist. CARDIOVASCULAR: Regular rate and rhythm. no murmurs RESPIRATORY: No accessory muscle use. Clear to auscultation. Breath sounds equal bilaterally. GASTROINTESTINAL: Abdomen soft, non-tender, nondistended. Extremities: No clubbing, cyanosis, or edema. No obvious deformities. MUSCULOSKELETAL: grossly intact ROM with 5/5 strength in upper and lower extremities proximally; slightly diminished muscle bulk and tone for age and habitus NEUROLOGICAL: Awake and alert. No obvious cranial nerve deficits. No facial droop nor slurred speech noted. Intact finger to nose to finger touch. PSYCHIATRIC: Appropriate mood and affect; insight and judgment normal. Results - Labs CBC & Chem 7: 03/18/18 10:50 03/19/18 01:00 Labs: Laboratory Results - last 24 hr 03/18/18 03/18/18 10:50 10:50 WBC 5.7 RBC 3.99 L Hgb 14.0 Hct 41.0 MCV 102.7 H MCH 35.0 H MCHC 34.1 RDW 16.3 Plt Count 190 MPV 8.5 Neut % (Auto) 78.4 H Lymph % (Auto) 10.1 [place] % (Auto) 9.5 H Eos % (Auto) 1.1 Baso % (Auto) 0.9 Neut # (Auto) 4.5 Lymph # (Auto) 0.6 L [place] # (Auto) 0.5 Eos # (Auto) 0.1 Baso # (Auto) 0.1 WBC Differential . Differential Comment Auto diff final Sodium 126 L Potassium 4.0 Chloride 88 L Carbon Dioxide 27.7 Anion Gap 10 BUN 4 L Creatinine 1.16 Estimated GFR 77 L Random Glucose 78 Calcium 9.1 Total Bilirubin 0.3 AST 85 H ALT 21 Alkaline Phosphatase 141 H Total Protein 8.3 H Albumin 3.6 Caprini VTE Risk Assessment Caprini VTE Risk Assessment: Moderate/High Risk (score >= 2) Caprini Risk Assessment Model: Point Value = 1 Point Value = 2 Point Value = 3 Point Value = 5 Age 41-60 Minor surgery BMI > 25 kg/m2 Swollen legs Varicose veins or History of unexplained or recurrent spontaneous Oral contraceptives or hormone replacement Sepsis (< 1 month) Serious lung disease, including pneumonia (< 1 month) Abnormal pulmonary function Acute myocardial infarction Congestive heart failure (< 1 month) History of inflammatory bowel disease Medical patient at bed rest Age 61-74 Arthroscopic surgery Major open surgery (> 45 min) Laparoscopic surgery (> 45 min) Malignancy Confined to bed (> 72 hours) Immobilizing plaster cast Central venous access Age >= 75 History of VTE Family history of VTE Factor V Leiden Prothrombin [id number] Lupus anticoagulant Anticardiolipin antibodies Elevated serum homocysteine Heparin-induced thrombocytopenia Other congenital or acquired thrombophilia Stroke (< 1 month) Elective arthroplasty Hip, pelvis, or leg fracture Acute spinal cord injury (< 1 month) Prophylaxis Regimen: Total Risk Factor Score Risk Level Prophylaxis Regimen 0-1 Low Early ambulation 2 Moderate Order ONE of the following: *Sequential Compression Device (SCD) *Heparin 5000 units SQ BID 3-4 Higher Order ONE of the following medications: *Heparin 5000 units SQ TID *Enoxaparin/Lovenox 40 mg SQ daily (WT < 150 kg, CrCl > 30 mL/min) *Enoxaparin/Lovenox 30 mg SQ daily (WT < 150 kg, CrCl > 10-29 mL/min) *Enoxaparin/Lovenox 30 mg SQ BID (WT < 150 kg, CrCl > 30 mL/min) AND/OR *Sequential Compression Device (SCD) 5 or more Highest Order ONE of the following medications: *Heparin 5000 units SQ TID (Preferred with Epidurals) *Enoxaparin/Lovenox 40 mg SQ daily (WT < 150 kg, CrCl > 30 mL/min) *Enoxaparin/Lovenox 30 mg SQ daily (WT < 150 kg, CrCl > 10-29 mL/min) *Enoxaparin/Lovenox 30 mg SQ BID (WT < 150 kg, CrCl > 30 mL/min) AND *Sequential Compression Device (SCD) Assessment and Plan - Plan 63-year-old black male being admitted from the squamous cell lung cancer. R lung Squamous cell cancer Oncology consulted w/ suspected progression, images pending as below Hyponatremia Possible SIADH -bmp in AM Per oncology request, will consult nephrology for further workup Generalized weakness Possibly secondary to hyponatremia address, possible SIADH above Obtain CK, TSH, magnesium, phosphorus PT, OT evaluation -Brain MRI with contrast, CT chest with contrast per oncology SCDs for now until imaging rules out brain mets
--- NOTE | 2018-03-18 18:24 | CT ---
EXAM DATE: 03/18/2018 6:11 PM EST AGE/SEX: 63 years / Male INDICATIONS: Stage four lung cancer. Hyponatremia. CLINICAL DATA: This is the patient's initial encounter. Patient reports that signs and symptoms have been present for 1 day and indicates a pain score of 3/10. MEDICAL/SURGICAL HISTORY: Carcinoma, lung. Hypertension. None. RADIATION DOSE: 7.42 CTDI (mGy) COMPARISON: [facility], CT CHEST W/O CONTRAST, 10/27/2017. [facility], CT CHEST W/O CONTRAST, 12/30/2017. . TECHNIQUE: Multiple contiguous axial images were obtained through the chest during bolus infusion of 70 ml Omnipaque 350 (iohexol) nonionic water-soluble contrast as a single exam dose. Images were obtained in suspended respiration using multiple row detector helical technique. Using automated exp osure control and adjustment of the mA and/or kV according to patient size, radiation dose was kept a s low as reasonably achievable to obtain optimal diagnostic quality images. DICOM format image data is available electronically for review and comparison. FINDINGS: A heterogeneously enhancing mass is again seen in the posterior medial, lower right chest. The mass i s approximately 7.9 x 9.5 x 11.2 cm, larger. Along the inferior portion of the mass is a small mass t hat is invading the chest wall that measures 3.4 x 4.7 x 4.6 cm, increased. There is associated destr uction of the posterior medial portion of the right 11th rib. There is a small to moderate right pleu ral effusion including a loculated, rim-enhancing component superior to the mass that measures approx imately 5.8 x 7.3 x 5.4 cm. This loculated collection is not new. A small free flowing component of p leural effusion has developed. There is dense consolidation in the right lower lobe. Left lung has a 4 mm nodule in the superior segment of the lower lobe not clearly present previously. No left pleural effusion. No mediastinal, hilar or axillary lymphadenopathy demonstrated. There is wall thickening and mucosal enhancement diffusely of the esophagus. A small hiatal hernia is present. Emphysema and coronary artery calcification again noted. CONCLUSION: 1. Increased size, heterogeneously enhancing large mass posteromedially in the right lower chest. Th ere is a component of the mass now invading the chest wall and destroying the right 11th rib. 2. A persistent loculated right pleural effusion with rim enhancement, conceivably empyema in the pr oper clinical setting. A small free flowing right pleural effusion has developed. 3. 4 mm nodule has developed in the left lower lobe. Electronically signed by: Brandon Nelson MD 03/18/2018 6:23 PM EST
[2018-03-18] MEDS ORDERED: Gadobutrol PF 7.5 MMOL/7.5 ML Vial (for RAD) IV.SIG ONE (19:09)
--- NOTE | 2018-03-18 19:36 | MR ---
EXAM DATE: 03/18/2018 7:22 PM EST AGE/SEX: 63 years / Male INDICATIONS: Metastatic disease. Blurry vision and falling for past three weeks, history of lung cancer. CLINICAL DATA: This is the patient's initial encounter. Patient reports that signs and symptoms have been present for 3 weeks and indicates a pain score of 7/10. MEDICAL/SURGICAL HISTORY: Hypertension. Carcinoma, lung. None. COMPARISON: [facility], PET/CT TUMOR, 08/20/2017. . TECHNIQUE: Multiplanar, multisequence examination of the brain was performed without and with 6.50 ml Gadavist (gadobutrol) contrast as a single exam dose. FINDINGS: Approximately 3 x 8 x 4 mm focus of enhancement involves the left-sided cerebellum, series 14 image 1 11 and series 15 image 131. No other focal intracranial enhancement is demonstrated. No bleed. No mas s effect or midline shift. Mild, chronic FLAIR signal abnormality seen in the periventricular white m atter of both cerebral hemispheres. There is an expansile lesion involving the right frontal bone, mostly the outer table and appears to be extending into the adjacent subcutaneous tissues. The lesion has heterogeneous enhancement and sunshine sures approximately 1.8 x 4.1 x 3.1 cm in size. Inferior margin of the lesion is at the superior rim of the right orbit. However, I don't see significant mass effect on the globe. The optic nerve and ot her intraconal soft tissues are within normal limits. 1.8 cm nonenhancing focus seen near the midline of the frontal sinuses and is probably a benign mucus retention cyst. There is benign-appearing mucoperiosteal thickening and enhancement of the maxillary air cells. CONCLUSION: 1. 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 No other acute intracranial abnormality d emonstrated. 2. Expansile and probably destructive bone lesion of the right frontal bone and focally involving th e superior margin of the right orbit. No intraorbital extension. 3. Sinus disease as described. Electronically signed by: Brandon Nelson MD 03/18/2018 7:34 PM EST
[2018-03-19 01:49] LABS: Calcium 8.9 mg/dL (8.5-10.1); Carbon Dioxide 30.8 meq/L (21.0-32.0); Potassium 3.7 meq/L (3.5-5.1)
--- NOTE | 2018-03-19 11:34 | P.PN ---
Subjective Interval history: Case discussed with oncologist, anticipate discharge today once nephrology sees him and clears him. Patient himself says he feels better today. Says he would rather go home than to a rehab facility. Physical Exam Vital signs: Vital Signs 03/18/18 18:05 03/18/18 22:30 03/18/18 23:00 Temperature Pulse Rate 84 90 93 H Respiratory Rate 16 Blood Pressure 136/71 Pulse Oximetry 03/19/18 00:00 03/19/18 01:00 03/19/18 02:00 Temperature 97.8 F Pulse Rate 90 90 84 Respiratory Rate 14 Blood Pressure 122/82 Pulse Oximetry 96 03/19/18 03:00 03/19/18 04:00 03/19/18 05:00 Temperature 97.9 F Pulse Rate 88 86 86 Respiratory Rate 14 Blood Pressure 124/77 Pulse Oximetry 98 03/19/18 06:00 03/19/18 07:00 03/19/18 08:00 Temperature 97.6 F Pulse Rate 90 80 80 Respiratory Rate 18 Blood Pressure 115/65 Pulse Oximetry 96 03/19/18 09:00 03/19/18 10:00 03/19/18 11:00 Temperature Pulse Rate 82 82 82 Respiratory Rate 20 Blood Pressure 121/82 Pulse Oximetry 98 Intake & Output 03/18/18 03/19/18 03/19/18 18:59 06:59 18:59 Intake Total 240 / 240 Balance 240 / 240 Weight 64.864 kg 65 kg Intake: Oral 240 / 240 Other: # Voids 2 Narrative: Eating up in bed working with speech therapy for cognition evaluation Heart sounds regular rate rhythm, no murmurs Clear lungs bilaterally, unlabored breathing Alert and oriented x3, insight intact regarding hospitalization No facial droop Results - Labs CBC & Chem 7: 03/18/18 10:50 03/19/18 01:00 Laboratory Results - last 24 hr 03/18/18 03/19/18 10:50 01:00 Sodium 126 L 131 L Potassium 4.0 3.7 Chloride 88 L 92 L Carbon Dioxide 27.7 30.8 Anion Gap 10 8 BUN 4 L 8 Creatinine 1.16 1.16 Estimated GFR 77 L 77 L Random Glucose 78 103 Osmolality 272 L Calcium 9.1 8.9 Total Bilirubin 0.3 AST 85 H ALT 21 Alkaline Phosphatase 141 H Total Protein 8.3 H Albumin 3.6 - Imaging Impressions Chest CT 03/18/18 00:00 CONCLUSION: 1. Increased size, heterogeneously enhancing large mass posteromedially in the right lower chest. There is a component of the mass now invading the chest wall and destroying the right 11th rib. 2. A persistent loculated right pleural effusion with rim enhancement, conceivably empyema in the proper clinical setting. A small free flowing right pleural effusion has developed. 3. 4 mm nodule has developed in the left lower lobe. Head MRI 03/18/18 00:00 CONCLUSION: 1. 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 No other acute intracranial abnormality demonstrated. 2. Expansile and probably destructive bone lesion of the right frontal bone and focally involving the superior margin of the right orbit. No intraorbital extension. 3. Sinus disease as described. Assessment and Plan - Plan 63-year-old black male being admitted from the squamous cell lung cancer. R lung Squamous cell cancer Oncology has reviewed imaging, MRI is suspicious for cerebellar metastases, radiation oncology will see the patient today for possible outpatient treatments Progression of primary lung lesion will be addressed by primary oncologist as an outpatient possibly through chemotherapy Hyponatremia Already improving with just simple diet since yesterday, questionable SIADH. Nephrology consultation and clearance pending -Likely secondary to hypothyroidism, treat underlying condition Generalized weakness Possibly secondary to hyponatremia address, possible SIADH above Apparently very hypothyroid, free T4 suggestive of primary hypothyroidism, starting Synthroid Mild myositis, possibly secondary to hypothyroidism, gentle IV fluids through the night PT, OT evaluation anticipate dc tomorrow morning
--- NOTE | 2018-03-19 11:43 | MB ---
cc: Anibal Girard MD DATE: 03/19/2018 REASON FOR CONSULTATION: Patient with a history of squamous cell carcinoma of the lung with difficulty walking, hyponatremia, and now found to have progressive disease and possible brain metastases. PATIENT PROFILE: The patient is single. He currently does not work. In the past, he worked as a babcock in a motel. He had smoked 3 packs of cigarettes per day for 40 years. He has an occasional drink. In the past he drink heavily. He has 3 children, 2 sons and 1 daughter. He still has an occasional cigarette. HISTORY OF PRESENT ILLNESS: The patient is a 63-year-old male who suffered a 40-pound weight loss and developed pain in the right hemithorax in late 2012. On 05/30/2013, he was found to have consolidation involving the right lower lobe as well as hilar and mediastinal adenopathy and pericardial adenopathy. He had destruction of the 8th and 9th rib. A CT-guided biopsy revealed a poorly differentiated squamous cell cancer. He has had a number of treatments, which have included carboplatin, Taxol, gemcitabine, nivolumab, and on either 2 or 3 occasions radiation to the right lung base. He was not felt to be a candidate for surgery. He has had problems with persistent hyponatremia, which has been poorly explained. He came to the office on the day of admission and was insecure about walking. He told me he was afraid that he would fall, and in fact several weeks ago fell striking his face and having swelling over the right supraorbital area. When seen in the office, he was again hyponatremic with a sodium of 123. I arranged for admission to the hospital the following day and requested that he have a CT of the thorax, MRI of the brain with and without contrast, and a consult with nephrology to explain and treat the hyponatremia. The MRI of the brain dated 03/18/2018 shows an 8 mm focus of enhancement involving the left cerebellum. There is an expansile lesion involving the right frontal bone, mostly the outer table, which appears to extend into the adjacent soft tissue. The lesion has heterogeneous enhancement and measures 1.8 x 4.1 x 3.1 cm. The inferior margin of the lesion is at the superior rim of the right orbit. Interestingly, the patient tells me that this is the area that was injured when he fell striking the front of his face. A CT scan of the chest was done, and I have personally reviewed this as well as the MRI of the brain. The mass at the right base continues to enlarge. It measures 9.5 x 7.9 x 11.2 cm. A component of this is invading the chest wall. There is a moderate-sized right pleural effusion. This is felt to represent progressive disease. In addition, in support of the diagnosis of progressive cancer, a CEA on 03/15/2018 is 26, previous value 18. Although not diagnostic of metastatic lung cancer, it is certainly suggestive. He has received no specific treatment other than a regular diet for his hyponatremia. On 03/19/2018, today, sodium 131, potassium 3.7, chloride 92, BUN 8, creatinine 1.16. Serum osmolality 277. Urine osmolality is low at 272. PAST SURGICAL HISTORY: 1. Port placement. 2. Right lung biopsy. PAST MEDICAL HISTORY: 1. Squamous cell carcinoma of the lung, dating back to 2013. Treated with radiation on 3 occasions and chemotherapy and immunotherapy as described. 2. Chronic poorly explained hyponatremia. ALLERGIES: NONE. MEDICATIONS: 1. Vasotec 5 mg a day. 2. Oxycodone/acetaminophen. FAMILY HISTORY: Unremarkable. REVIEW OF SYSTEMS: Notable for chronic lower back pain and difficulty with gait where he feels unsteady. He is not having any pain in the right hemithorax. He remains active and otherwise feels well. PHYSICAL EXAMINATION: GENERAL: Reveals a gentleman who is thin appearing chronically ill, but not acutely ill. VITAL SIGNS: Blood pressure 115/70, respiratory rate 18, pulse 80, afebrile, 96% saturation. HEENT: Head is normocephalic. Sclerae and conjunctivae are normal. Oropharynx unremarkable. LYMPHATICS: No cervical, supraclavicular, axillary or inguinal adenopathy. HEART: Regular rhythm. LUNGS: Decreased sounds right base. ABDOMEN: Without hepatosplenomegaly. EXTREMITIES: Trace edema. MUSCULOSKELETAL: No bone pain. NEUROLOGIC: No focal weakness, although gait slightly abnormal. SKIN: Examination of the soft tissues reveals swelling over the right supraorbital area. The patient tells me this is where he struck himself when he fell several weeks ago. ASSESSMENT; A 63-year-old male who I believe has progressive squamous cell cancer of the lung. He appears to have a small cerebellar metastasis. The MRI suggests metastatic disease to the right supraorbital region. This is less clear to me as he had a fall and injured this area. I believe he has progressive disease involving the base of the right lung. His hyponatremia corrected with a regular diet. It is not clear to me why he has hyponatremia, as I would not expect this to have occurred if he had inappropriate antidiuretic hormone. PLAN: I have spoken with radiation oncology. They will see him today and following that visit he can go home. They will probably give radiation to the cerebellar lesion, and if they feel that lesion in the right supraorbital area is cancer, I suspect this will be included too. I doubt that he is a candidate for more radiation to the base of the right lung. I can revisit systemic therapy, but the impact will not be great given that he has received multiple treatments in the past. The above has been discussed with his hospitalist and the radiation oncologist, Dr. Moya. I will see him as an outpatient in several weeks. MD ILEANA Sexton/adri , 10:40 AM , 10:53 AM ABDIAS
[2018-03-19 12:19] LABS: Magnesium 2.1 mg/dL (1.5-2.5); Phosphorus 2.5 mg/dL (2.5-4.9)
[2018-03-19 12:44] LABS: Thyroid Stimulating Hormone 87.6 uIU/mL (0.358-3.740)
[2018-03-19 12:57] LABS: CKMB Percent 1.1 % (0.0-4.0); Creatine Kinase MB 11.4 ng/mL (0.5-3.6)
--- NOTE | 2018-03-19 13:17 | RADONCCONS ---
CONSULTATION REPORT Date: 03/19/2018 Patient Name: Yessy Moreno Date of : 1955 Age: 63 Sex: Male CONSULTATION REPORT REFERRING PHYSICIAN: Anibal Girard CC: Anibal Girard This consultation has been personally requested in writing by the referring physician to evaluate the possible use of radiation therapy to treat the patient. A copy of this consultation will be forwarded to the referring physician to aid in the medical decision making process. Treatment recommendations will be provided as well. This patient was seen as an inpatient today. 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 CHIEF COMPLAINT/HISTORY OF PRESENT ILLNESS: This gentleman is well-known to our service. He was initially treated under Dr. Edwina Rodríguez with stereotactic treatment to his right lung after having received systemic therapy. Unfortunately he recurred with a large lesion in his right lower lobe. He received further systemic therapy followed by further stereotactic radiation. Unfortunately he has had progression of disease and is. He has been followed by Dr. Girard. He has outpatient CT evidence of progressive disease in his right lower lung but fortunately he has had minimal symptoms referrable to this. More recently he has had some problems with balance. He has had a low sodium. He was recently seen in Dr. Girard's office using a walker for the first time. He was subsequently admitted to the hospital where he had an MRI of his brain as well as a CT scan of his chest. The CT scan of his chest showed further progression of the right lower lobe lung lesion it is encroaching upon the right hilum. Fortunately this gentleman continues to deny significant shortness of breath. He is not using oxygen on a routine basis. And he denies significant cough or hemoptysis. An MRI of his brain has revealed a several millimeter sized lesion in the left cerebellum. This is very small and it is difficult to know if this is causing him any of his problems with his balance as he is also had an intermittent low sodium. Nevertheless this is a new finding and with extensive intrathoracic disease it is likely significant. PAST MEDICAL HISTORY: In Oncology [facility]. This gentleman has past history has been extensively documented in Dr. Girard's notes and will not be repeated here. PAST SURGICAL HISTORY: No Implants on 06/08/2017, port placement and right lung biopsy. MEDICATIONS: In [facility] for inpatient admission 03/18/18 ALLERGIES: Reviewed in [facility] for inpatient admission 03/18/18 FAMILY HISTORY: Father is at age 89. Mother is . Maternal Grandmother is . Paternal Grandmother is . Maternal Grandfather is . Paternal Grandfather is . no family history of cancer. SOCIAL HISTORY: Last screened on 06/08/2017 - Current every day smoker 3.0 packs/day for 40 years (120 pack years). Current some day drinker 3 drinks/day. Patient indicated use of the following products: cigarettes. Patient indicated access to the following support systems: supportive family/friends willing to assist with needs, Adequate transportation available for expected visits, and Patient was asked and has no advanced directives. Patient indicated participation in the following forms of activity: sedentary and daily activities. REVIEW OF SYSTEMS: ROS ConstitutionalNo fevers, chills, night sweats, excessive fatigue or weight loss. Feels well ROS EyesNo significant visual difficulties. No diplopia.ROS ENMTNo problems with hearing, no sore throat, no sinus drainage.ROS EndocrineNo hot flashes or night sweats.ROS Hematologic/LymphaticNo easy bruising or bleeding. The patient denies any tender or palpable lymph nodes.ROS BreastsNo abnormal masses of breast, no nipple discharge or pain.ROS RespiratoryNo dyspnea on exertion, chest pain, cough or hemoptysis.ROS CardiovascularNo chest pain, palpitations or orthopnea.ROS GastrointestinalNo nausea, vomiting, diarrhea, GI bleeding, or constipation. No change in bowel habits, no heartburn or early satiety.ROS Genitourinary (M)No hematuria, dysuria, increased frequency, urgency, hesitancy or incontinence. ROS MusculoskeletalStill has moderate to severe lower back pain which is relieved by Percocet. Several days ago had pain right lateral hemithorax which is now goneROS IntegumentaryNo chronic rashes, inflammation, ulcerations or skin changes.ROS NeurologicHaving difficulty with gait and balance. Using for the first time ever a walker. 2 weeks ago had a blackout spell. Fell approximately 9 days ago.ROS PsychiatricNo insomnia, depression, hubert or mood swings. PHYSICAL EXAMINATION: Today in exam it is noted that he is up and ambulatory without his walker. His gait may be slightly wide-based but he was not having any difficulty. Head and neck: There was no jaundice. His conjunctive and eyelids were normal. He had full EOMs. 7th and 5th nerve testing were clinically normal. Inspection of his oral cavity and oropharynx revealed no mucosal surface lesions. Palpation of his neck revealed no adenopathy in any region. There is subtle swelling over his right eye. It is difficult to tell if there is a bony protuberance or just swelling. The MRI suggests possible bony disease however the patient relates acute onset after he bumped this area with a fall. Respiratory: His right lung base was dull with decreased air entry. There is no evidence of effusion. There are no crepitations. His spine was straight there is no scoliosis. Cardiovascular: He had a normal first and second heart sound without murmurs rubs or bruits and his rate and rhythm was normal. There is no dependent edema. Abdomen: His abdomen was soft and nontender without masses or hepatosplenomegaly. Extremities: He moves all limbs normally he was able to ambulate if not with a slightly wider gait power testing was 4+-5 on 5 in his lower limbs and 5 on 5 in his upper limbs there is no ankle ed RADIOLOGY DATA: MRI brain dated 03/18/2018: CONCLUSION: 1. 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 No other acute intracranial abnormality demonstrated. 2. Expansile and probably destructive bone lesion of the right frontal bone and focally involving the superior margin of the right orbit. No intraorbital extension. 3. Sinus disease as described. CT chest dated 03/18/2018: CONCLUSION: 1. Increased size, heterogeneously enhancing large mass posteromedially in the right lower chest. There is a component of the mass now invading the chest wall and destroying the right 11th rib. 2. A persistent loculated right pleural effusion with rim enhancement, conceivably empyema in the proper clinical setting. A small free flowing right pleural effusion has developed. 3. 4 mm nodule has developed in the left lower lobe. Electronically signed by: Brandon Nelson MD 03/18/2018 6:23 PM EST PATHOLOGY DATA: Previous biopsies documented non-small cell lung cancer. Thought to be squamous cell carcinoma. IMPRESSION/PLAN: I failed to mention in the history that the MRI of the brain also showed a suspicious area in his front right frontal bone immediately above his right eye. This is suggestive of bony metastatic disease but when discussing this with the patient his onset of swelling in this location was immediately related to head trauma with a fall. He had no clinical abnormality in this location until that fall and he feels the area is slowly decreasing in discomfort and decreasing in swelling. Today I had a discussion with Dr. Girard regarding this gentlemen's care. We know he has progressive disease in his lung and has had radiation treatment to high dose on at least 2 occasions. We both favor holding off any local treatment to the lung as he is largely asymptomatic from this perspective and further therapy does run the risk of causing further complications for this gentleman. With respect to the cerebellar lesion although there is a small chance that this is not real I believe we do have to respect this. He has had balance problems and this is in the cerebellum, it is small enough however that it certainly may not be causing him any symptoms. Knowing that he has had uncontrolled non-small cell lung cancer for a long time. However makes this likely real and certainly this is something that we can treat stereotactically with a very high success rate in a very low risk of complications. We are coordinating an outpatient simulation for this gentleman. With respect to the bony lesion on the right frontal area we have agreed to follow this expectantly. He will need a follow-up MRI of his brain after the SRS in approximately 6-8 weeks time. If that MRI shows evidence of progressive bony disease or if he has ongoing problems in this location into the near future palliative treatment can be coordinated for this site at any time. I am seeing this gentleman today for Dr. Moya. Dr. Moya will be managing his care into the future. Thank you for asking us to see this gentleman. As mentioned we are arranging outpatient stereotactic surgery to his brain in the immediate future. Adrien Gordon MD 03/19/2018 1:16:31 PM This report was verified electronicallyThis report was verified electronically
--- NOTE | 2018-03-19 14:58 | P.CONNP ---
History of Present Illness Service: Nephrology Consult date: 03/19/18 Requesting Physician: Kael Paez Reason for Consult: Hyponatremia Primary Care Provider: UNKNOWN History of Present Illness: Patient is a 63-year-old -[place] male with history of lung cancer diagnosed in 2014 underwent chemotherapy and radiation, he states he has some local recurrence and is feeling weak with generalized weakness and his speech is also getting slurred, patient came in and found to have severe hyponatremia sodium is 126 which improved to 131 and a TSH 87.6, CK of 1000 Review of Systems Constitutional: Reports anorexia, Reports lack of energy Respiratory: Reports cough, Reports shortness of breath Gastrointestinal: Reports other Genitourinary: Reports other Musculoskeletal: Reports abnormal walking Neurologic: Reports weakness PMFSH - History History Provided By: Patient - Medical History Medical History: Medical History (Last Reviewed 03/19/18 @ 14:54 by Konstantin Ramirez MD) Hypertension Hyponatremia Lung cancer - Family History Family History: Family History (Last Updated 03/19/18 @ 14:55 by Konstantin Ramirez MD) Other Family history non-contributory - Tobacco History Second Hand Smoke Exposure: No Tobacco Use In Past 30 Days: Yes Smoking Status: Current every day smoker Tobacco Type: Cigarettes - Alcohol History How Often Do You Have a Drink Containing Alcohol: 4 or more times a week - Substance Use History Substance History: Active Abuse - Substance Use Type Alcohol Status: Active Route Used: By Mouth Comment: at least 5 days a week drinks beer - Travel History Recent Travel in the [place] Within the Last 8 Weeks: No Recent Travel Out of the Country Within the Last 8 Weeks: No - Immunization History Tetanus Immunization: Unsure Hx Influenza Vaccine This Season: No Medications and Allergies Active Medications: Active Medications Sodium Chloride (Ns Inj) 1,000 mls @ 100 mls/hr IV.CONT .Q10H BHARAT Levothyroxine Sodium (Synthroid) 50 mcg PO DAILY@0600 BHARAT Levothyroxine Sodium (Synthroid) 75 mcg PO DAILY@0600 BHARAT Sodium Chloride (Ns Flush) 2 ml IV.FLUSH BID BHARAT Last Admin: 03/19/18 11:34 Dose: Not Given Sodium Chloride (Ns Flush) 2 ml IV.FLUSH UNSCH PRN PRN Reason: FLUSH AFTER USING IV ACCESS Allergies Allergy/AdvReac Type Severity Reaction Status Date / Time No Known Allergies Allergy Verified 03/18/18 10:16 Home Medications Medication Instructions Recorded Confirmed Type enalapril maleate 10 mg PO DAILY 03/18/18 03/18/18 History oxycodone-acetaminophen 1 tab PO Q4-6H PRN 03/18/18 03/18/18 History Exam Vital signs: Vital Signs 03/18/18 18:05 03/18/18 22:30 03/18/18 23:00 Temperature Pulse Rate 84 90 93 H Respiratory Rate 16 Blood Pressure 136/71 Pulse Oximetry 03/19/18 00:00 03/19/18 01:00 03/19/18 02:00 Temperature 97.8 F Pulse Rate 90 90 84 Respiratory Rate 14 Blood Pressure 122/82 Pulse Oximetry 96 03/19/18 03:00 03/19/18 04:00 03/19/18 05:00 Temperature 97.9 F Pulse Rate 88 86 86 Respiratory Rate 14 Blood Pressure 124/77 Pulse Oximetry 98 03/19/18 06:00 03/19/18 07:00 03/19/18 08:00 Temperature 97.6 F Pulse Rate 90 80 80 Respiratory Rate 18 Blood Pressure 115/65 Pulse Oximetry 96 03/19/18 09:00 03/19/18 10:00 03/19/18 11:00 Temperature Pulse Rate 82 82 82 Respiratory Rate 20 Blood Pressure 121/82 Pulse Oximetry 98 03/19/18 12:00 03/19/18 13:00 03/19/18 14:00 Temperature Pulse Rate 82 90 82 Respiratory Rate Blood Pressure Pulse Oximetry Intake & Output 03/18/18 03/19/18 03/19/18 18:59 06:59 18:59 Intake Total 240 / 240 Balance 240 / 240 Weight 64.864 kg 65 kg Intake: Oral 240 / 240 Other: # Voids 2 Narrative: GENERAL: Thin built, well-developed patient. SKIN: Warm and dry. HEAD: Normocephalic. EYES: No scleral icterus. No injection or drainage. NECK: Supple, trachea midline. No JVD or lymphadenopathy. CARDIOVASCULAR: Regular rate and rhythm without murmurs, gallops, or rubs. RESPIRATORY: Breath sounds Diminished at Bases with Rhonchi scattered GASTROINTESTINAL: Abdomen soft, non-tender, nondistended. EXTREMITIES: No edema NEUROLOGICAL: Awake, alert, and oriented x 3. Non-focal. Results - Lab Results 03/18/18 10:50 03/19/18 01:00 Most recent lab results Calcium 8.9 mg/dL (8.5-10.1) 03/19/18 01:00 Phosphorus 2.5 mg/dL (2.5-4.9) 03/19/18 01:00 Magnesium 2.1 mg/dL (1.5-2.5) 03/19/18 01:00 Assessment and Plan - Assessment (1) Hyponatremia Code(s): E87.1 - Hypo-osmolality and hyponatremia Status: Acute (2) Lung cancer, lower lobe Code(s): C34.30 - Malignant neoplasm of lower lobe, unspecified bronchus or lung Status: Acute - Plan Check urine sodium and osmolality Continue to hydrate is improving CK is elevated this may be related to hypothyroidism with myopathy T4 Start Synthroid 50 mcg daily It appears he has hypothyroidism he has radiation in the past this may have led to hypothyroid state and this can cause hyponatremia Follow blood work BMP Discussed with Dr. Paez (2) Lung cancer, lower lobe Qualifiers: Laterality: right Qualified Code(s): C34.31 - Malignant neoplasm of lower lobe, right bronchus or lung
[2018-03-19] MEDS ORDERED: Sod Chloride 0.9% Inj 1,000 ML IV.CONT SCH ×2 (15:00→16:00)
[2018-03-19] MEDS ORDERED: Heparin Central Flush 100 UNIT/ML 5 ML Vial IV.FLUSH PRN ×2 (16:00)
[2018-03-19 16:13] LABS: Free T4 (Free Thyroxine) 0.28 ng/dL (0.76-1.46)
[2018-03-19] MEDS: Levothyroxine 50 MCG Tablet PO SCH (16:14)
[2018-03-19] MEDS ORDERED: Acetaminophen 325 MG Tablet PO PRN (20:20)
[2018-03-19] MEDS: oxyCODONE/Acetaminophen 10/325 Tablet PO PRN (20:53)
[2018-03-20] MEDS: Levothyroxine 50 MCG Tablet PO SCH (05:42)
[2018-03-20] MEDS: oxyCODONE/Acetaminophen 10/325 Tablet PO PRN (05:50)
[2018-03-20] MEDS ORDERED: Levothyroxine 75 MCG Tablet PO SCH (06:00)
[2018-03-20 06:38] LABS: Calcium 8.4 mg/dL (8.5-10.1); Carbon Dioxide 29.2 meq/L (21.0-32.0); Potassium 3.9 meq/L (3.5-5.1)
[2018-03-20 09:32] LABS: Creatine Kinase MB 7.1 ng/mL (0.5-3.6)
--- NOTE | 2018-03-20 09:54 | P.PN ---
Subjective Interval history: Nursing denies any acute changes overnight. Patient himself says he feels good. Physical Exam Vital signs: Vital Signs 03/19/18 10:00 03/19/18 11:00 03/19/18 12:00 Temperature Pulse Rate 82 82 82 Respiratory Rate 20 Blood Pressure 121/82 Pulse Oximetry 98 03/19/18 13:00 03/19/18 14:00 03/19/18 15:00 Temperature Pulse Rate 90 82 90 Respiratory Rate 20 Blood Pressure 123/75 Pulse Oximetry 97 03/19/18 16:00 03/19/18 17:00 03/19/18 18:00 Temperature Pulse Rate 74 78 76 Respiratory Rate Blood Pressure Pulse Oximetry 03/19/18 19:00 03/19/18 20:00 03/19/18 21:00 Temperature 98.1 F Pulse Rate 94 H 90 90 Respiratory Rate 18 Blood Pressure 130/77 Pulse Oximetry 96 03/19/18 22:00 03/19/18 22:34 03/19/18 23:00 Temperature 98.4 F Pulse Rate 84 86 Respiratory Rate 18 18 Blood Pressure 135/80 Pulse Oximetry 99 03/20/18 00:00 03/20/18 01:00 03/20/18 02:00 Temperature Pulse Rate 84 86 82 Respiratory Rate Blood Pressure Pulse Oximetry 03/20/18 03:00 03/20/18 04:00 03/20/18 05:00 Temperature 98.3 F Pulse Rate 92 H 98 H 83 Respiratory Rate 18 Blood Pressure 147/82 H Pulse Oximetry 94 L 03/20/18 06:00 03/20/18 06:19 03/20/18 07:00 Temperature 97.8 F Pulse Rate 80 83 Respiratory Rate 18 16 Blood Pressure 153/90 H Pulse Oximetry 97 03/20/18 08:00 03/20/18 09:00 Temperature Pulse Rate 83 86 Respiratory Rate Blood Pressure Pulse Oximetry Intake & Output 03/19/18 03/20/18 03/20/18 18:59 06:59 18:59 Intake Total 620 / 620 480 / 480 Output Total 250 / 250 Balance 620 / 620 230 / 230 Weight 68 kg Intake: Oral 620 / 620 480 / 480 Output: Urine 250 / 250 Narrative: 5/5 proximal upper and lower extremity strength bilaterally including for prescription Alert and awake Heart sounds regular rhythm, no murmurs Clear lungs bilaterally, unlabored breathing Results - Labs CBC & Chem 7: 03/18/18 10:50 03/20/18 05:30 Laboratory Results - last 24 hr 03/19/18 03/19/18 03/19/18 01:00 15:46 19:10 Sodium Potassium Chloride Carbon Dioxide Anion Gap BUN Creatinine Estimated GFR Random Glucose Calcium Phosphorus 2.5 Magnesium 2.1 Total Creatine Kinase 1043 H CK-MB (CK-2) 11.4 H CK-MB (CK-2) % 1.1 Vitamin B12 626 TSH 87.600 H Free T4 0.28 L Thyroxine (T4) Less than 0.5 L Urine Osmolality 303 Ur Random Sodium 03/19/18 03/20/18 03/20/18 19:10 05:30 05:30 Sodium 131 L Potassium 3.9 Chloride 93 L Carbon Dioxide 29.2 Anion Gap 9 BUN 9 Creatinine 1.24 Estimated GFR 71 L Random Glucose 83 Calcium 8.4 L Phosphorus Magnesium Total Creatine Kinase 690 H CK-MB (CK-2) 7.1 H CK-MB (CK-2) % 1.0 Vitamin B12 TSH Free T4 Thyroxine (T4) Urine Osmolality Ur Random Sodium 42 Assessment and Plan - Plan 63-year-old black male being admitted from the squamous cell lung cancer. R lung Squamous cell cancer Oncology has reviewed imaging, MRI is suspicious for cerebellar metastases, will follow up with radiation oncology outpatient for this Progression of primary lung lesion will be addressed by primary oncologist as an outpatient possibly through chemotherapy Hyponatremia Already improving with just simple diet since yesterday, questionable SIADH. 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
== END 2018-03-20 10:56 | disposition home or self-care (01) ==
LOC: NEPE 10:11 → NEDA 14:26 → HCIS 22:16
PROVIDERS: ADMIT Hospitalist; ATTEND Hospitalist
DX: C79.31 Secondary malignant neoplasm of brain; R26.2 Difficulty in walking, not elsewhere classified; Z92.21 Personal history of antineoplastic chemotherapy; C34.31 Malignant neoplasm of lower lobe, right bronchus or lung; M60.9 Myositis, unspecified; E87.1 Hypo-osmolality and hyponatremia; I10 Essential (primary) hypertension; Z91.81 History of falling; M89.9 Disorder of bone, unspecified; J90 Pleural effusion, not elsewhere classified; Z92.3 Personal history of irradiation; F17.210 Nicotine dependence, cigarettes, uncomplicated; E03.9 Hypothyroidism, unspecified